=== PATIENT | female | born 1960 | race American Indian/Alaskan Native ===

== ENCOUNTER 2019-11-18 05:00 | Emergency (ER) | payer SELFPAY ==
--- NOTE | 2019-11-18 05:54 | XRay Report ---
CHEST 1 VIEW INDICATION / CLINICAL INFORMATION: Chest Pain. COMPARISON: 09/30/2011 FINDINGS: SUPPORT DEVICES: None. HEART / MEDIASTINUM: No significant abnormality. LUNGS / PLEURA: No significant pulmonary or pleural abnormality. No pneumothorax. ADDITIONAL FINDINGS: No significant additional findings. IMPRESSION: 1. No acute findings. No interval change. Signer Name: Nataliya So MD Signed: 11/18/2019 5:49 AM Workstation Name: [id number]
--- NOTE | 2019-11-18 05:55 | XRay Report ---
RIGHT SHOULDER, 3 VIEWS INDICATION / CLINICAL INFORMATION: right shoulder pain. COMPARISON: None available. FINDINGS: Mild degenerative changes are present in the shoulder including the glenohumeral joint and AC joint. No fracture or dislocation identified. Visualized right lung is grossly clear. IMPRESSION: Mild degenerative change throughout the shoulder. Signer Name: Nataliya So MD Signed: 11/18/2019 5:50 AM Workstation Name: [id number]
[2019-11-18 06:01] LABS: Basophils % (Auto) 0.4 % (0.0-1.8); Eosinophils % (Auto) 0.4 % (0.0-4.3); Hematocrit 46.5 % (30.3-42.9); Hemoglobin 15.5 gm/dl (10.1-14.3); Lymphocytes # (Auto) 1.1 K/mm3 (1.2-5.4); Lymphocytes % (Auto) 18.7 % (13.4-35.0); Mean Corpuscular HGB Conc 33 % (30-34); Mean Corpuscular Volume 97 fl (79-97); Monocytes # (Auto) 0.5 K/mm3 (0.0-0.8); Platelet Count 208 K/mm3 (140-440); Red Blood Count 4.79 M/mm3 (3.65-5.03); Red Cell Distribution Width 13.2 % (13.2-15.2)
--- NOTE | 2019-11-18 06:12 | Emergency Department Report ---
ED General Adult HPI - General Chief complaint: Extremity Injury, Lower Stated complaint: RT SHOULDER PAIN Time Seen by Provider: 11/18/19 06:11 Source: patient Mode of arrival: Ambulatory Limitations: No Limitations - History of Present Illness Initial comments: This is a 59-year-old female who states that she fell at 6 PM yesterday. She is very reticent to answer questions regarding the fall. However, she confirms that it was a ground-level fall which was mechanical and not preceded by weakness dizziness or syncope. She states that her right shoulder is "out of place". She also complains of upper back pain. She was likewise hesitant to even tell me if the back pain was upper or lower. She is not complaining of other symptoms. She admits to noncompliance with her blood pressure medicine and medical follow-up. -: Gradual Location: back, left, upper extremity Radiation: non-radiation Quality: aching Consistency: intermittent Improves with: none Worsens with: movement Associated Symptoms: denies other symptoms Treatments Prior to Arrival: none - Related Data Home Medications Medication Instructions Recorded Confirmed Last Taken Amlodipine Besylate 1 tab PO BID 06/21/14 09/13/14 09/13/14 Lisinopril 1 tab PO DAILY 06/21/14 09/13/14 09/13/14 Previous Rx's Medication Instructions Recorded Last Taken Type Lisinopril/Hydrochlorothiazide 1 each PO DAILY #30 tablet 11/18/19 Unknown Rx [Zestoretic 10-12.5 mg Tablet] amLODIPine 5 mg PO DAILY #30 tab 11/18/19 Unknown Rx traMADoL [Ultram 50 MG tab] 50 mg PO Q6HR PRN #20 tablet 11/18/19 Unknown Rx Allergies Allergy/AdvReac Type Severity Reaction Status Date / Time No Known Allergies Allergy Verified 01/14/16 13:50 ED Review of Systems ROS: Stated complaint: RT SHOULDER PAIN Other details as noted in HPI Constitutional: denies: chills, fever Eyes: denies: eye pain, eye discharge, vision change ENT: denies: ear pain, throat pain Respiratory: denies: cough, shortness of breath, wheezing Cardiovascular: denies: chest pain, palpitations Endocrine: no symptoms reported Gastrointestinal: denies: abdominal pain, nausea Genitourinary: denies: urgency, dysuria Musculoskeletal: as per HPI, back pain, arthralgia Skin: denies: rash, lesions Neurological: denies: headache, weakness Psychiatric: denies: anxiety, depression Hematological/Lymphatic: denies: easy bleeding, easy bruising ED Past Medical Hx - Past Medical History Previous Medical History?: Yes Hx Hypertension: Yes Hx Diabetes: Yes Hx Seizures: Yes (X 1 PRIOR TO THESE EPISODES) Additional medical history: BRAIN ANEURYSM - Surgical History Past Surgical History?: Yes Additional Surgical History: Brain - Social History Smoking Status: Current Every Day Smoker Substance Use Type: Alcohol - Medications Home Medications: Home Medications Medication Instructions Recorded Confirmed Last Taken Type Amlodipine Besylate 1 tab PO BID 06/21/14 09/13/14 09/13/14 History Lisinopril 1 tab PO DAILY 06/21/14 09/13/14 09/13/14 History Lisinopril/Hydrochlorothiazide 1 each PO DAILY #30 tablet 11/18/19 Unknown Rx [Zestoretic 10-12.5 mg Tablet] amLODIPine 5 mg PO DAILY #30 tab 11/18/19 Unknown Rx traMADoL [Ultram 50 MG tab] 50 mg PO Q6HR PRN #20 tablet 11/18/19 Unknown Rx ED Physical Exam - General Limitations: Physical Limitation (Poor cooperation) General appearance: alert, in no apparent distress - Head Head exam: Present: atraumatic, normocephalic - Eye Eye exam: Present: normal appearance. Absent: scleral icterus - ENT ENT exam: Present: mucous membranes moist - Neck Neck exam: Present: normal inspection. Absent: tenderness, meningismus - Respiratory Respiratory exam: Present: normal lung sounds bilaterally. Absent: respiratory distress - Cardiovascular Cardiovascular Exam: Present: regular rate, normal rhythm. Absent: systolic murmur, diastolic murmur, rubs, gallop - GI/Abdominal GI/Abdominal exam: Present: soft, normal bowel sounds. Absent: distended, tenderness, guarding - Extremities Exam Extremities exam: Present: other (There is essentially normal range of motion without pain of the right shoulder. It is in its normal anatomical position. The back is difficult to examine secondary to patient cooperation. However there is no midline tenderness. The area where the patient complains of tenderness is the upper back. The lower back is nontender. ) - Back Exam Back exam: Present: normal inspection, paraspinal tenderness (Subjective upper back poorly localized). Absent: CVA tenderness (R), CVA tenderness (L), muscle spasm, vertebral tenderness - Neurological Exam Neurological exam: Present: alert, oriented X3 - Psychiatric Psychiatric exam: Present: normal affect, normal mood - Skin Skin exam: Present: warm, dry, intact, normal color. Absent: rash ED Course Vital Signs 11/18/19 11/18/19 11/18/19 05:07 05:36 06:30 Temperature 98.1 F 97.6 F Pulse Rate 88 73 80 Respiratory 16 17 12 Rate Blood Pressure 221/109 177/108 Blood Pressure 210/110 [Left] O2 Sat by Pulse 98 99 99 Oximetry 11/18/19 11/18/19 11/18/19 06:31 07:00 07:49 Temperature Pulse Rate 90 76 82 Respiratory 15 21 Rate Blood Pressure 177/108 167/103 167/103 Blood Pressure [Left] O2 Sat by Pulse 98 100 Oximetry - Reevaluation(s) Reevaluation #1: Shoulder chest x-ray showed no acute process. The T-spine was inadequately visualized. The patient will be sent for additional x-rays. She was given analgesia. She was given labetalol for her uncontrolled hypertension. 11/18/19 07:03 ED Medical Decision Making - Lab Data Result diagrams: 11/18/19 05:47 11/18/19 05:47 Laboratory Results - last 24 hr 11/18/19 11/18/19 05:47 05:47 WBC 6.1 RBC 4.79 Hgb 15.5 H Hct 46.5 H MCV 97 MCH 32 MCHC 33 RDW 13.2 Plt Count 208 Lymph % (Auto) 18.7 [place] % (Auto) 9.0 H Eos % (Auto) 0.4 Baso % (Auto) 0.4 Lymph # 1.1 L [place] # 0.5 Eos # 0.0 Baso # 0.0 Seg Neutrophils % 71.5 H Seg Neutrophils # 4.4 Sodium 140 Potassium 3.8 Chloride 100.5 Carbon Dioxide 24 Anion Gap 19 BUN 13 Creatinine 0.7 Estimated GFR > 60 BUN/Creatinine Ratio 19 Glucose 143 H Calcium 9.5 Troponin T < 0.010 - Radiology Data Radiology results: report reviewed (T-spine also negative) IMPRESSION: Mild degenerative change throughout the shoulder. Signer Name: Nataliya So MD Critical care attestation.: If time is entered above; I have spent that time in minutes in the direct care of this critically ill patient, excluding procedure time. ED Disposition Clinical Impression: Uncontrolled hypertension Sprain of shoulder, right Qualifiers: Encounter type: initial encounter Shoulder sprain type: unspecified sprain Qualified Code(s): S43.401A - Unspecified sprain of right shoulder joint, initial encounter Disposition: TO HOME OR SELFCARE Is pt being admited?: No Does the pt Need Aspirin: No Condition: Stable Instructions: Hypertension (ED), Shoulder Sprain (ED) Additional Instructions: Right shoulder. Rx for pain and blood pressure. Return any acute change or problem. Follow-up with primary care physician and orthopedist as necessary. Prescriptions: amLODIPine 5 mg PO DAILY #30 tab traMADoL [Ultram 50 MG tab] 50 mg PO Q6HR PRN #20 tablet PRN Reason: Pain Lisinopril/Hydrochlorothiazide [Zestoretic 10-12.5 mg Tablet] 1 each PO DAILY #30 tablet Referrals: PATRICK DEVRIES MD [Staff Physician] - 3-5 Days [facility] [Provider Group] - 3-5 Days Time of Disposition: 08:28
[2019-11-18 06:22] LABS: BUN/Creatinine Ratio 19; Blood Urea Nitrogen 13 mg/dL (7-17); Calcium 9.5 mg/dL (8.4-10.2); Hemolysis Index 6
[2019-11-18 07:07] VITALS: BP 167/103
--- NOTE | 2019-11-18 08:03 | XRay Report ---
THORACIC SPINE, 2 VIEWS INDICATION / CLINICAL INFORMATION: MAIN: fall, pain; MIDDLE BACK PAIN FOLLOWED BY A FALL X 1DAY. COMPARISON: None available. FINDINGS: Vertebral body heights and disc spaces are fairly well-preserved. I see no evidence of fracture or tr aumatic malalignment. Mild spondylitic changes noted throughout the thoracic spine. IMPRESSION: No visible fracture or traumatic malalignment. Signer Name: Nataliya So MD Signed: 11/18/2019 7:59 AM Workstation Name: [id number]
== END 2019-11-18 09:03 | disposition home or self-care (01) ==
LOC: ED 05:00
DX: S43.401A Unspecified sprain of right shoulder joint, initial encounter (principal); I10 Essential (primary) hypertension; E11.9 Type 2 diabetes mellitus without complications; F17.200 Nicotine dependence, unspecified, uncomplicated; Z79.899 Other long term (current) drug therapy; X58.XXXA Exposure to other specified factors, initial encounter; Y93.89 Activity, other specified; Y92.89 Other specified places as the place of occurrence of the external cause; Y99.8 Other external cause status
CPT/HCPCS: 36415; 71045; 72070; 80048; 84484; 85025; 93005; 93010; 96374